=== PATIENT | male | born 1975 | race Caucasian/White ===

== ENCOUNTER 2019-01-13 14:15 | Emergency (ER) | payer MEDICAID | END 2019-01-13 17:52 | disposition home or self-care (01) | LOC: FTE 17:52 | DX: S49.91XA Unspecified injury of right shoulder and upper arm, initial encounter (principal); S79.911A Unspecified injury of right hip, initial encounter; S39.92XA Unspecified injury of lower back, initial encounter; W01.0XXA Fall on same level from slipping, tripping and stumbling without subsequent striking against object, initial encounter; Y92.039 Unspecified place in apartment as the place of occurrence of the external cause | CPT/HCPCS: 72100; 73030-RT; 73510; 99284-25 ==